=== PATIENT | male | born 1970 | race Caucasian/White ===

== ENCOUNTER 2021-05-26 19:12 | Emergency (ER) | payer SELFPAY ==
[~2021-05-26] VITALS: Ht 185.4 cm; Wt 106.6 kg
[2021-05-26] MEDS ORDERED: FENTANYL CITRATE/PF 100MCG/2 ML INJ IV ONE (19:30)
[2021-05-26] MEDS ORDERED: SODIUM CHLORIDE 0.9% 1000ML 1,000 ML IV STA (19:40)
[2021-05-26] MEDS ORDERED: SODIUM CHLORIDE 0.9% 1000ML 1,000 ML ONE (19:53)
[2021-05-26] MEDS ORDERED: KETOROLAC TROMETHAMINE 30 MG/ML VIAL IV STA (21:06)
[2021-05-26] MEDS ORDERED: PROPOFOL IV EMULSION 10 MG/ML 20 ML VIAL IV ONE (21:15)
[2021-05-26] MEDS ORDERED: KETAMINE HCL INJ 50 MG/ML 10 ML VIAL IV ONE (21:15)
[2021-05-26] MEDS ORDERED: PROPOFOL IV EMULSION 10 MG/ML 20 ML VIAL ONE (21:18)
[2021-05-26] MEDS ORDERED: KETAMINE HCL INJ 50 MG/ML 10 ML VIAL ONE (21:18)
[2021-05-26] MEDS ORDERED: IBUPROFEN600 MG PO (22:44)
[2021-05-27 00:09] VITALS: BP 133/78
== END 2021-05-27 00:11 | disposition home or self-care (01) ==
LOC: ER 20:09
DX: M24.312 Pathological dislocation of left shoulder, not elsewhere classified (principal); Y93.83 Activity, rough housing and horseplay; Y92.095 Swimming-pool of other non-institutional residence as the place of occurrence of the external cause
CPT/HCPCS: 23655; 73020; 73030; 99284; J1885; J2704; J3010; J7030